=== PATIENT | male | born 1935 | race Caucasian/White ===

== ENCOUNTER → 2018-11-19 19:12 | Outpatient (REF) | payer MEDICARE, SELFPAY ==
[2018-11-19 21:23] LABS: Prostate Specific Antigen 7.53 ng/mL (0.10-4.00)
== END ==
LOC: LAB 19:12
PROVIDERS: Visit Provider Family Medicine Geriatric Medicine
DX: R97.20 Elevated prostate specific antigen [PSA] (principal)
CPT/HCPCS: 36415; 84153

== ENCOUNTER 2019-11-10 08:07 | Day surgery (SDC) | payer MEDICARE, SELFPAY ==
[2019-11-05 12:25] VITALS: BMI 30.5
[2019-11-10] VITALS (8 sets, daily range): BP systolic 109–175; BP diastolic 68–94; PULSE 66–78; RESP 10–18; TEMP 36.3–36.6; O2SAT 89–96; BMI 29.5
[2019-11-10] MEDS: ACETAMINOPHEN 325 MG TABLET 975 MG PO (09:25)
[2019-11-10] MEDS: PREGABALIN 75 MG CAPSULE PO (09:26)
[2019-11-10] MEDS: MELOXICAM 7.5 MG TABLET 15 MG PO (09:26)
--- NOTE | 2019-11-10 09:46 | SUR.PREOP ---
Tez Gupta RN (covered this author for a break) noted pt with a irregular heart beat, placed pt on the monitor and noted PVC's and bijemeni. EKG (outside) done 10/25/2019 showed NSR. This author notified anesthesia of heart rhythm, checking with anesthesia to see if second EKG needs to be done today, anesthesia didn't think second EKG would be necessary due to pt asymptomatic.
[2019-11-10] MEDS: LACTATED RINGERS 1,000 ML 42 ML IV (10:30)
--- NOTE | 2019-11-10 10:39 | P.OP_ITS ---
Operative Date/Time/Diagnoses Date of procedure: 11/10/19 Time of procedure: 12:27 Pre-op diagnosis: Right knee medial compartment osteoarthritis Post-op diagnosis: same Procedure & Clinicians Procedure: Right knee medial compartment arthroplasty Same procedure as scheduled: Yes Indications: The patient presents today for medial compartment knee arthroplasty after failure of conservative treatment. The nature of the procedure including the risks and benefits, alternatives, postoperative course and expected outcome were discussed and all questions answered. Consent was obtained. Operative site confirmed and marked. Surgeon: Sherman Vee [employer] Inspector: Keenan Osorio Anesthesia Type: General and Local Operative Notes Closure Type: primary Specimen(s): none sent Prosthetic devices, grafts, tissues, transplants, or devices: ZUK E femoral component, 3 tibial component and 9 mm polyethylene tray. Applied: implant(s) Estimated Blood Loss (mL): 10 Blood products transfused: none Tourniquet time (min): 45 Procedure in detail: The patient was taken to the operative suite and placed under general anesthesia. The patient received prophylactic antibiotics 1 g of IV tranexamic acid prior to surgery. The lateral aspect of the leg was prepped and the knee injected with 20 mL of 1% lidocaine with epinephrine. The leg was prepped and draped in usual sterile fashion. The leg was exsanguinated with an Esmarch dressing and the tourniquet raised to 250 torr. A 10 cm medial parapatellar incision and arthrotomy was then made. The anterior aspect of the fat pad and medial meniscus was resected. A small amount of anterior tibial boss was resected with a oscillating saw. The knee was then extended and the alignment guide placed. The distal femoral and proximal tibial cutting guides were then pinned into place. The distal femoral cut was made in extension. The proximal tibial cut was made in flexion. All remaining meniscus was excised. Gaps were checked with blocks. Soft tissues were then injected with a combination of 40 mL of quarter percent Marcaine with epinephrine, 20 mL of Exparel. The femur was sized and the appropriate cutting guide placed. The peg holes were drilled and chamfer cuts made. Next the tibia was sized and drilled. Trial components were then placed. The knee had good congregation of soft tissue tension without over correction. Range of motion was full. The trial components were removed. The knee was cleansed with Pulsavac irrigation and dried. The components were then cemented with high viscosity vacuum mixed bone cement. The knee was held in extension until the cement had adequately cured. The knee was then irrigated and inspected for any further debris. The extensor mechanism was closed at 90? of flexion with a few interrupted #1 Vicryl sutures and a running O V-LOC suture. The knee was then filled with 50 mL of solution containing 1 g of tranexamic acid and 10 mL of 0.5% Marcaine. The subcutaneous tissue was closed with 2-0 Vicryl. The skin was closed with a running 3 0 V-LOC suture and surgical adhesive. An Aquacel dressing was applied. The leg was then wrapped with an Delgado which will be kept on for the first 24 hours. The patient tolerated the procedure well and was returned to recovery room in good condition. Complications: none Post-operative Condition: stable Disposition: same day surgery Plan for aftercare: Standard postoperative protocol for medial compartment a rthroplasty.
--- NOTE | 2019-11-10 10:39 | PM.PREOP ---
Pre-operative Note Interval Note History & Physical reviewed/Exam performed by Physician: Yes Changes to H&P: No
[2019-11-10] MEDS: CEFAZOLIN 2 GM/100 ML FROZ.PIGGY IV (11:23)
[2019-11-10] MEDS: TRANEXAMIC ACID 1,000 MG VIAL 1000 MG INJ (11:40)
[2019-11-10] MEDS: LIDOCAINE 1% W/EPI 20 ML INJ (11:40)
--- NOTE | 2019-11-10 11:50 | SUR.OPER ---
Supine on padded OR bed. Pillow under head, arms secured on padded armboards <90 degree abduction. Safety belt across torso. Non-operative leg secured with tape over blanket over lower leg. Operative leg secured in DeMayo/Jerry positioner. Foam padded brace at thigh of operative leg.
[2019-11-10] MEDS: BUPIVACAINE 0.5% W/ EPI (PF) 20 ML, BUPIVACAINE LIPOSOME 266 MG, SODIUM CHLORIDE 0.9% 2... INJ (11:59)
[2019-11-10] MEDS: BUPIVACAINE 0.5% W/ EPI (PF) 10 ML, TRANEXAMIC ACID 1,000 MG, SODIUM CHLORIDE 0.9% 20 ML INJ (12:02)
[2019-11-10] MEDS: OXYCODONE IR 5 MG TABLET PO (13:09)
--- NOTE | 2019-11-10 13:32 | SUR.PHASEI ---
Stable pacu stay. Medicted with oxycodone, to opd, reported to [facility]i.
== END 2019-11-10 14:01 | disposition home or self-care (01) ==
PROVIDERS: PCP Physician Assistant Medical; Referring Provider Orthopaedic Surgery; Visit Provider Orthopaedic Surgery
PROC: (CPT 27446; principal; 2019-11-10 10:45)
DX: M17.11 Unilateral primary osteoarthritis, right knee (principal)
CPT/HCPCS: 27446; C1776; C9290; J0690; J3010

== ENCOUNTER → 2020-02-25 15:03 | Outpatient (CLI) | payer MEDICARE, SELFPAY ==
[2020-02-25 15:38] LABS: Bacteria Urine None Seen; RBC Urine None Seen (0-5/HPF)
[2020-02-25 16:16] LABS: Add Manual Diff / Slide Review NO; Basophils Absolute Auto 100 /uL (0-100); Basophils Percent Auto 1.2 % (0-2); Eosinophils Absolute Auto 200 /uL (0-450); Eosinophils Percent Auto 2.5 % (2-4); Hematocrit 44.6 % (41-53); Hemoglobin 15.6 g/dL (13.5-17.5); Lymphocytes Absolute Auto 2200 /uL (1100-4500); Lymphocytes Percent Auto 30.8 % (25-40); Mean Corpuscular Hemoglobin 32.3 PG (26-34); Mean Corpuscular Volume 92.4 fL (80-100); Monocytes Absolute Auto 600 /uL (0-900); Monocytes Percent Auto 8.5 % (3-14); Neutrophils Absolute Auto 4000 /uL (1500-7000); Platelet Count 232 X10^3/uL (150-400); Red Blood Cell Count 4.83 X10^6/uL (4.5-5.9); Red Cell Distribution Width 13.6 % (11.6-14.8)
[2020-02-25 16:20] LABS: Hemoglobin A1C% w Est Avg Glu 5.3 % (4.0-6.0)
[2020-02-25 16:21] LABS: Appearance Urine UA CLEAR; Bilirubin Urine UA NEGATIVE (NEGATIVE); Color Urine UA YELLOW; Glucose Urine UA NEGATIVE (Negative); Ketones Urine UA TRACE (NEGATIVE); Leukocyte Esterase Urine UA NEGATIVE (NEGATIVE); Nitrite Urine UA NEGATIVE (Negative); Occult Blood Urine UA NEGATIVE (Negative); Protein Urine UA TRACE (Negative); Urobilinogen Urine UA 0.2 E.U./dL (0.2); pH Urine UA 6.5 (4.5-8.0)
[2020-02-25 16:27] LABS: Blood Urea Nitrogen 17 mg/dL (9-20); Calcium 9.4 mg/dL (8.4-10.2); Carbon Dioxide 26 mmol/L (22-32); Chloride 104 mmol/L (98-107); Estimated Glomerular Filt Rate > 60.0 mL/min (>60); Glucose 118 mg/dL (80-110); HEMOLYSIS < 15 (0-50); Potassium 4.4 mmol/L (3.4-5.1); Sodium 138 mmol/L (137-145)
[2020-02-25 16:32] LABS: Culture Indicated Urine Cult Not Indicated; Squamous Epithelial Cell Urine 0-1 /HPF (0-5/HPF); WBC Urine 0-1/HPF (0-5/HPF)
== END ==
PROVIDERS: PCP Physician Assistant Medical; Referring Provider Orthopaedic Surgery; Visit Provider Orthopaedic Surgery
DX: Z01.812 Encounter for preprocedural laboratory examination (principal); R73.9 Hyperglycemia, unspecified; N39.0 Urinary tract infection, site not specified
CPT/HCPCS: 36415; 80048; 81001; 83036; 85025

== ENCOUNTER → 2020-03-27 09:50 | Outpatient (CLI) | payer MEDICARE, SELFPAY ==
[2020-03-27 23:33] LABS: COVID19 Sendout Not Detected (Not Detect)
== END ==
PROVIDERS: PCP Physician Assistant Medical; Visit Provider Physician Assistant
DX: Z01.812 Encounter for preprocedural laboratory examination (principal)
CPT/HCPCS: 87635

== ENCOUNTER 2020-03-30 08:04 | Day surgery (SDC) | payer MEDICARE, SELFPAY ==
[2020-03-22 08:32] VITALS: BMI 31.4
[2020-03-30] VITALS (15 sets, daily range): BP systolic 96–141; BP diastolic 51–90; PULSE 55–71; RESP 10–19; TEMP 35.9–36.5; O2SAT 92–96; BMI 30.4
--- NOTE | 2020-03-30 | DI.RAD.S_ITS ---
PROCEDURE: XR PELVIS 1-2V INDICATIONS: INTER-OP RIGHT HIP TECHNIQUE: 1 view of the lower pelvis acquired. COMPARISON: [facility] [place], [place], XR PELVIS WITH BILATERAL HIPS 5 VIEWS, 02/25/2020, 13:59. FINDINGS: Bones: Patient is status post right hip arthroplasty, with hardware components in expected positions. Left hip arthroplasty prosthesis is stable. The hip joint appears congruent. The visualized bony structures appear intact. Soft tissues: Overlying postoperative changes are noted. No suspicious soft tissue densities. IMPRESSION: Intraoperative images for right hip arthroplasty demonstrate expected postsurgical change. Left hip arthroplasty stable. Dictated by: Elizabeth Live MD, PhD on 03/30/2020 at 12:16 Approved by: Elizabeth Live MD, PhD on 03/30/2020 at 12:24
--- NOTE | 2020-03-30 08:36 | DI.RAD.S_ITS ---
PROCEDURE: XR HIP W PEL IF DONE RT 2V INDICATIONS: total right hip TECHNIQUE: AP pelvis and lateral view of the right hip acquired. COMPARISON: None. FINDINGS: Bones: Patient is status post right hip arthroplasty, with hardware components in expected positions. The hip joint appears congruent. The visualized bony structures appear intact. There is also prior left total hip arthroplasty. Soft tissues: Overlying postoperative changes are noted. No suspicious soft tissue densities. IMPRESSION: Postop changes from right total hip arthroplasty with anatomic right hip alignment. Dictated by: Torres Snyder M.D. on 03/30/2020 at 13:30 Approved by: Torres Snyder M.D. on 03/30/2020 at 13:31
[2020-03-30] MEDS: LACTATED RINGERS 1,000 ML 42 ML IV ×2 (09:18→11:58)
[2020-03-30] MEDS: ACETAMINOPHEN 325 MG TABLET 975 MG PO (09:18)
[2020-03-30] MEDS: PREGABALIN 75 MG CAPSULE PO (09:19)
[2020-03-30] MEDS: CELECOXIB 200 MG CAPSULE PO (09:19)
[2020-03-30] MEDS: VANCOMYCIN 1,000 MG/200 ML PIGGYBACK 200 MG IV (09:20)
--- NOTE | 2020-03-30 09:50 | PM.HP.1 ---
History of Present Illness History of Present Illness Date Patient Seen: 03/30/20 Time Patient Seen: 09:50 Chief complaint: [id number] Narrative: Gustavo continues to note having ongoing right hip pain which restricts his ability to ambulate and ability to walk up and down hills. He has a history of a left total hip arthroplasty done in 2012. He notes ongoing groin pain.. For additional H&P see previous H&P. 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) Family & Social History Social History: household members spouse Prior Living Arrangements House Safety & Behavioral: Feels Safe in Current Yes Environment Been Physically Hurt or No Threatened By a Person Suicidal Ideation Description None Suicide Plan Description No Plan Tobacco & Substance use: Smoking Status Never smoker alcohol intake current alcohol intake frequency 0-2 drinks per day Substance Use Type marijuana Meds Home Medications and Allergies Home Medications Medication Instructions Recorded Confirmed Type oxycodone 5 mg PO Q4H PRN #40 tab 11/10/19 03/30/20 Rx sildenafil [Viagra] 100 mg PO DAILY PRN 03/22/20 03/30/20 History tamsulosin 0.4 mg PO BEDTIME 03/22/20 03/30/20 History Allergies Allergy/AdvReac Type Severity Reaction Status Date / Time ciprofloxacin [From Cipro] AdvReac Severe Muscle Verified 03/22/20 11:03 spasm Review of Systems Review of Systems Narrative: No fever cough cold or flu Exam Vital Signs (past 8 hours): - 03/30/20 09:05 Temperature 97.3 F L Pulse Rate 65 Respiratory Rate 16 Blood Pressure 141/85 H Pulse Oximetry 95 Oxygen Delivery Method Room Air Oxygen Flow Rate 0 Narrative Exam Narrative: HEENT is benign, lungs are clear, cor regular rate and rhythm, abdomen soft and benign, right hip scans intact he has pain with range of motion in the right hip and restricted range of motion, left hip has a healed posterolateral scar. No significant swelling in bilateral lower extremities. Assessment & Plan Assessment & Plan narrative: Severe right hip osteoarthritis plan is for right total hip. The procedure options risks benefits and complications were discussed in detail. His health has been doing well with no new changes and think is a reasonable candidate for right total hip arthroplasty.
--- NOTE | 2020-03-30 09:54 | PM.OP.1 ---
Operative Date/Time/Diagnoses Date of procedure: 03/30/20 Time of procedure: 10:22 Pre-op diagnosis: Right hip osteoarthritis Post-op diagnosis: same Procedure & Clinicians Procedure: Right total hip arthroplasty posterior approach Same procedure as scheduled: Yes Indications: The patient has had progressively worsening right hip pain with radiographic changes consistent with arthritis. Non-operative management has failed and the patient has requested total hip replacement. The risks, benefits and alternatives to surgery were discussed with the patient prior to proceeding. Risks discussed included, but were not limited to, failure to relieve pain, leg length discrepancy, dislocation, stiffness, infection, nerve damage, deep venous thrombosis, pulmonary embolism, stroke, coma, heart attack, permanent paralysis and , as well as the potential need for eventual revision of the prosthetic. Surgeon: Christine Bolden Anesthesia Type: General and Spinal Operative Notes Findings: Severe right hip osteoarthritis, good quality bone, good stability Closure Type: primary Specimen(s): none sent Prosthetic devices, grafts, tissues, transplants, or devices: Bolden and Nephew 58 mm R3 cup, neutral poly liner 58 by 36, anthology size 7 standard offset, -3 Applied: drain(s) Estimated Blood Loss (mL): 250 Blood products transfused: none Procedure in detail: The patient was seen in the pre-operative area, where the patient identified the right hip as the operative site and this was marked with my initials. The patient received pre-operative antibiotics and was taken to the operating room and placed on the operative table in the left lateral decubitus position after satisfactory anesthesia. A instructor of sociology out was performed. The right leg was prepared from the ankle to the iliac crest with ChloroPrep in the usual fashion and draped through sterile drapes. The hip was approached through an approximately 20 cm incision centered over the greater trochanter and curving gently posteriorly as it went proximally. This was carried sharply to the fascia harry, which was divided and retracted with a self retaining retractor. The trochanteric bursa was excised with care being taken to avoid the sciatic nerve, which was identified and protected throughout the case. The short external rotators were incised and the capsulomuscular flap was raised and tagged for later repair. The hip was dislocated, and a femoral neck osteotomy performed approximately 15 mm above the lesser trochanter. Retractors were placed around the femur. The canal was opened with a box cutting osteotome, followed by a T handled reamer and a lateralizing reamer. The chili pepper broach was then used, followed by sequential broaching until there was good stability of the broach in the femur. Retractors were placed to expose the acetabulum. The labrum and central soft tissues were removed. Reaming was performed initially going up in 2 mm increments, then 1 mm increments until good bite was obtained with an odd sized reamer. The cup 1 mm larger than the last reamer was then inserted using the appropriate anteversion guides. A trial neutral liner was placed. The broach was placed in the canal. A trial head and neck were then placed and the hip relocated and checked for leg length and stability. An intraoperative film confirmed the component position and no evidence of fracture. The patient was stable in the position of sleep, of squatting, and could be put through a range of motion with 45 degrees internal rotation without dislocation. At 90 degrees flexion, internal rotation to 70? was possible before dislocation. This was felt to be satisfactory and the appropriate components were opened, and the trials were removed. The acetabular liner was impacted into position. The final stem was then impacted into the prepared femoral canal. A brief Betadine soak was performed while trialing with head options. The hip was meticulously irrigated with normal saline. Finally the femoral head was impacted onto the stem. The acetabulum was cleared of all material and the hip relocated one final time. The capsulomuscular flap was then repaired to the greater trochanter though an awl hole using the tag sutures. The short external rotators were repaired with a nonabsorbable suture. A deep drain was placed and brought out anteriorly. The fascia harry was closed with Vicryl. The subcutaneous layer was closed with barbed sutures and SteriStrips. An Aquacel Ag dressing was applied and the patient was taken to recovery having tolerated the procedure well. Post-operative Condition: stable Disposition: Acute Care Plan for aftercare: The patient will be maintained on a standard total hip replacement protocol with weight bearing as tolerated and posterior hip precautions. The patient will receive Aspirin and sequential compression devices for DVT prophylaxis. The patient will be discharged home when safe for the home environment.
[2020-03-30] MEDS: CEFAZOLIN 2 GM/100 ML FROZ.PIGGY IV ×2 (10:10→17:52)
[2020-03-30] MEDS: TRANEXAMIC ACID 1,000 MG VIAL 1000 MG INJ ×2 (10:10→11:50)
--- NOTE | 2020-03-30 10:44 | SUR.OPER ---
Lateral on padded OR bed. Gel axillary roll. Arms secured on padded armboard with pillow supporting top arm. Padded hip positioner braces x4 - anterior and posterior chest and pelvis. Additional gel pad used anterior pelvis. Gel pad under bottom leg from knee to foot and secured with tape over sheet.
[2020-03-30] MEDS: BUPIVACAINE 0.25% W/ EPI 30 ML VIAL 60 ML INJ (10:51)
[2020-03-30] MEDS: BUPIVACAINE LIPOSOME 266 MG/20 ML VIAL INJ (10:52)
[2020-03-30] MEDS: SODIUM CHLORIDE IRRIG SOLUTION 250 ML, EPINEPHrine 1 MG IRR (10:55)
[2020-03-30] MEDS: LACTATED RINGERS 1,000 ML 125 ML IV (14:30)
[2020-03-30] MEDS: IBUPROFEN 400 MG TABLET PO ×3 (14:30→20:41)
[2020-03-30] MEDS: ACETAMINOPHEN 325 MG TABLET 650 MG PO ×2 (14:39→20:39)
--- NOTE | 2020-03-30 14:45 | PC.NURSE ---
Pt to room 217 via bed from PACU. Pt oriented to room, call light, bed controls and tv controls. Pt denies pain, nausea, or shortness of breath. VS stable. Given a snack and water to drink. Bed alarm on for safety. SCD's on and running. Pt agrees to call for assistance and not get up without staff assistance.
--- NOTE | 2020-03-30 17:00 | PT.IIE ---
Current Diagnoses Unilateral primary osteoarthritis, right hip (03/30/20) Pain in right hip (03/30/20) Surgery Performed Operation Date: 03/30/20 10:45 Actual Procedures p Total Hip Arthroplasty(Right) - Christine Bolden MD Surgical History (Last Reviewed 03/30/20 @ 09:50 by Christine Bolden MD) History of colonoscopy (Acute 08/13/11) History of total left hip arthroplasty (Acute ~2016) History of vasectomy (Acute) Hx of arthroscopy of left knee (Acute 2017) Hx of elbow surgery (Acute) Hx of tonsillectomy (Acute) Hx of umbilical hernia repair (Acute) S/P right unicompartmental knee replacement (Acute 10/31/19) Medical History (Last Reviewed 03/30/20 @ 09:50 by Christine Bolden MD) Anxiety and depression (Acute) Colon polyps (Acute) Diverticulosis (Acute) Elevated prostate specific antigen (PSA) (Acute) Knee pain, right (Acute) Left knee pain (Acute) Liver disease (Acute 1968) Melanoma in situ of back (Acute) Osteoarthritis (Acute) Seborrheic dermatitis (Acute) Physical Therapy Inpatient Evaluation/Re-Eval M1 PT/OT-IP Prior Functional Status Start: 03/30/20 17:09 Freq: NEEDED Status: Active Protocol: Document 03/30/20 17:00 AB (Rec: 03/30/20 18:13 AB [id number]) Medical Review Prior Functional Status Medical History Reviewed Yes Communication able to make needs known Mobility and Gait pt stated that he is independent with all mobilities and ambulation without AD Prior Functional Level (Other details) pt s/p R uni knee last oct 2019 and just underwent R CHADWICK posterior approach today. stated that his will undergo the same procedure in ~ 6 weeks and he will be the one who will assist her. Social History Household Members spouse Living Arrangements House Number of Floors (Floors) One Floor Number of Stairs To Enter/Railing? 1 step to enter Home Environment Walk in Shower Home Equipment Front Wheel Walker,Straight Cane,Grab Bars In Shower M2 PT-IP Current Condition Start: 03/30/20 17:09 Freq: NEEDED Status: Active Protocol: Document 03/30/20 17:00 AB (Rec: 03/30/20 18:13 AB [id number]) Physical Therapy Current Condition Current Condition Evaluation Date 03/30/20 Treatment Diagnosis s/p R CHADWICK posterior approach; difficulty in walking Onset Date 03/30/20 Precautions Posterior Hip Precautions No Hip Flexion > 90 degrees,No Hip Internal Rotation,No Hip Adduction Weight Bearing Status Weight Bearing Status Weight Bear as Tolerated Allowed Weight Bearing Amount (enter % RLE WBAT or #) (%) M3 PT-IP Subjective Start: 03/30/20 17:09 Freq: NEEDED Status: Active Protocol: Document 03/30/20 17:00 AB (Rec: 03/30/20 18:13 AB [id number]) Subjective Physical Therapy Visit Type Type Initial Evaluation Visit Start Time 17:00 Visit Stop Time 17:51 Total Visit Minutes 51 Number of PERSONAL LINES SALES EXECUTIVE Visits 0 Physical Therapy Visit Comments Patient Comments pt is agreeable to do PT Therapy Pain Assessment Pain Present Pain Present Denied Pain M4 PT-IP Mobility and Gait Start: 03/30/20 17:09 Freq: NEEDED Status: Active Protocol: Document 03/30/20 17:00 AB (Rec: 03/30/20 18:13 AB [id number]) PT-Bed Mobility Assessment Rolling Level of Assist Standby Assistance Supine to Sit Supine to Sit Standby Assistance Sit to Supine Sit to Supine Contact Guard Assistance,1 Person Assistance Scooting Scooting to Edge of Bed Standby Assistance PT-Transfer Assessment Sit to and From Stand Sit to and from Stand Minimal Assistance,1 Person Assistance,Use of Upper Extremities Equipment Transfer Assistive Device Gait Belt,Front Wheeled Walker Orthotic/Prosthetic Devices or Brace: No Transfers Transfer Destination Bed,Chair Transfer Technique ambulated using FWW Transfer Ability Level of Assist Minimal Assistance,1 Person Assistance,Use of Upper Extremities Comments Mobility Comments pt with NAC standing using FWW and trying to use the urinal. PT took over and pt sat on EOB. Pt agreed to do PT. reviewed hip precautions with pt and pt requires cues to recall. pt stated that he feels squirrely in the head. pt can be impulsive and requires cues for safety and to maintain hip precautions. pt completed sit to stand from EOB min A and cues for hip precautions. ambulated in room ~ 20 ft x 2 . presents with unsteady antalgic gait and cues for R quad activation . presents with increase R knee flexion during standing and requires cues for steadiness. pt ambulated to bed. completed supine to sit SBA and cues to maintain hip precautions. pt usually gets in/out the L side of the bed. pt stated that he usually feels dizzy with initial sitting up. BP checked: 139/ 90. pt ambulated towards the chair ~ 15 ft min A and cues using fWW. pt wants to use the urinal and remained standing using fWW for support and requires CGA and cues for safety. pt tolerated ~ 8 min of standing. pt agreed to sit up on chair. positioned pt on the chair. set up pt for dinner. call light and table placed within reach. Gait Assessment Gait Gait Assistance Required: Minimum Assistance,1 Person Assist Distance (Feet) 20 Able to Maintain Weight Bearing Status Yes During Gait Assistive Devices Assistive Device Gait Belt,Front Wheeled Walker Orthotic/Prosthetic Devices or Brace: No Gait Deviations General Gait Pattern Antalgic,Decreased Stride Length,Decreased Feet Clearance,Step-to Gait Factors Limiting Gait Function Factors Limiting Gait Function Decreased Activity Tolerance, Decreased Strength,Difficulty Following Directions,Poor Balance,Poor Safety Awareness Comments Gait Comments pls refer to mobility section for details PT-Balance Assessment Sitting Balance and Reactions Static Sitting Balance Ability Good Dynamic Sitting Balance Ability Good Standing Balance and Reactions Static Standing Balance Ability Fair Dynamic Standing Balance Ability Fair Device Used FWW M5 PT-IP Objective Assessments Start: 03/30/20 17:09 Freq: NEEDED Status: Active Protocol: Document 03/30/20 17:00 AB (Rec: 03/30/20 18:13 [id number]) Orientation Orientation/Cognition Level of Alertness Alert Orientation Name,Birthday,Place,Situation Language Function Ability No Deficits Noted Safety Awareness Decreased Safety Awareness Memory Description Short Term Impaired Gross Range of Motion Lower Extremity ROM Assessment Within Functional Limits Strength Lower Extremity Strength Assessment Right Impaired Hip 3+/5 Knee 4-/5 M6 PT-IP Treatment Start: 03/30/20 17:09 Freq: NEEDED Status: Active Protocol: Document 03/30/20 17:00 AB (Rec: 03/30/20 18:13 AB [id number]) Physical Therapy Treatment Education Education Provided Precautions,Weight Bearing Status,Post-Op Packet,Safety M7 PT-IP Assessment and Plan Start: 03/30/20 17:09 Freq: NEEDED Status: Active Protocol: Document 03/30/20 17:00 AB (Rec: 07/09/20 18:13 AB [id number]) PT Summary Assessment and Plan Potential Rehabilitation Potential Good Status of Condition at Evaluation Evolving Summary Impairments Pain,ROM,Strength,Balance, Coordination,Sensation,Tone, Cognition,Bed Mobility, Transfers,Gait,Activity Tolerance Assessment Summary pt requiring CGA to min A with mobility and with slight confusion and is impulsive. pt s/p R CHADWICK posterior approach and just had surgery this morning and will likely progress with mobility during hospital stay. pt lives in [employer] and plans to go home with spouse to assist him. will conduct caregiver training when appropriate and also complete stair training. pt stated that he is set up for outpt PT. Goals Bed Mobility Goal Independent Transfer Goal Independent,Front Wheeled Walker Gait Goal Independent,Front Wheel Walker Gait Distance 200 Other Goals up/down 1 step using FWW SBA Days to Meet Goals 3 Frequency of Treatment Frequency Of Treatment Twice a Day Treatment Plan Physical Therapy Treatment Plan Bed Mobility Training,Transfer Training,Gait Training, Therapeutic Exercise,Balance Retraining,Post Op Education, Discharge Planning,Hot or Cold Pack,Neuromuscular Re-ed, Coordination Retraining,Manual Therapy Other Recommendations and Next Treatment ambualation, caregiver Focus training, stair training Recommendations To Nursing Amount of Assist Needed 1 Person Assist Discharge Recommendations PT Discharge Recommendations Home with Assistance, Outpatient PT Transportation Needs at Discharge Private Vehicle
[2020-03-30] MEDS: DOCUSATE 100 MG CAPSULE PO (20:39)
[2020-03-30] MEDS: ASPIRIN EC 81 MG TABLET PO (20:39)
[2020-03-30] MEDS: TAMSULOSIN 0.4 MG CAPSULE PO (20:39)
--- NOTE | 2020-03-30 22:43 | PC.NURSE ---
ZAKI SHIFT NOTE: pt ambulated in his [id number]. denied any pain. dressing cdi. hv compressed and intact. CMS+. PP++. Pt unable to urinate, bladder scan was 742cc. Inserted in and out cath per protocol, but failed. In and out cath met resistance. tried with coude catheter, did not meet any resistance and inserted all the way, but there was no urine output. Another RN tried 16 Iranian regular thomson, but no urine output. Notified , DEO to give it an hour and try again if unable to urinate. Finally Coordinator got thomson in. pt had over 700cc out, hematuria from trauma, urine dark cee. notified Dr. Higginbotham that thomson was in. VTO to leave thomson in till tomorrow.
[2020-03-31] VITALS: BP 122/74; PULSE 65; RESP 16; TEMP 36.8; O2SAT 92
[2020-03-31] MEDS: LACTATED RINGERS 1,000 ML 125 ML IV (00:40)
[2020-03-31] MEDS: CEFAZOLIN 2 GM/100 ML FROZ.PIGGY IV (01:20)
[2020-03-31] MEDS: IBUPROFEN 400 MG TABLET PO ×4 (01:20→13:38)
[2020-03-31 05:44] LABS: Hematocrit 39.4 % (41-53); Hemoglobin 13.2 g/dL (13.5-17.5)
[2020-03-31 06:00] VITALS: BP 128/80; PULSE 63; RESP 16; TEMP 36.8; O2SAT 95
[2020-03-31] MEDS: ASPIRIN EC 81 MG TABLET PO (08:40)
[2020-03-31] MEDS: DOCUSATE 100 MG CAPSULE PO (08:40)
[2020-03-31] MEDS: ACETAMINOPHEN 325 MG TABLET 650 MG PO ×2 (08:41→13:38)
[2020-03-31 08:44] VITALS: PULSE 63; RESP 16; O2SAT 97
[2020-03-31 09:00] VITALS: BP 121/79; PULSE 55; RESP 16; TEMP 36.6; O2SAT 95
--- NOTE | 2020-03-31 09:44 | P.DS_ITS ---
History of Present Illness History of Present Illness Date Patient Seen: 03/31/20 Time Patient Seen: 09:44 Chief complaint: [id number] Narrative: Gustavo continues to note having ongoing right hip pain which restricts his ability to ambulate and ability to walk up and down hills. He has a history of a left total hip arthroplasty done in 2012. He notes ongoing groin pain.. For additional H&P see previous H&P. Discharge Providers Provider Date of admission: 03/30/20 08:04 Discharge Date: 03/31/20 Primary care physician: Yennifer Martinez PA-C Consults: 03/30/20 08:36 Consult to Anesthesiology Routine Comment: Consulting Provider: Anesthesiologist Reason for consultation: Regional block for post operative pain control 03/30/20 13:35 Consult to Discharge Planning Routine Comment: Consult to Physical Therapy Evaluate & Treat Comment: Physician Instructions: post op CHADWICK protocol Consult to Respiratory Therapy Evaluate & Treat Comment: Physician Instructions: Evaluate and treat Discharge provider: Christine Bolden MD Summary Hospital Course Discharge Diagnosis: Severe right hip OA. Right total hip arthroplasty. BPH. Hospital Course: Patient was taken the operating room he underwent a right total hip arthroplasty. He per tolerated the procedure well and was mobilized with nursing. He did have difficulty voiding and had to have a Jarrett catheter placed. The Jarrett was discontinued on postop day by day 1. He has seen Dr. Ojeda in the past for urological problems. He was able to void prior to d ischarge. Status at Discharge Cognitive/behavioral status at discharge: oriented Functional status at discharge: uses cane/walker Overall status at discharge: patient is progressing back to baseline Time Spent with Patient Time spent: Less than 30 minutes Exam Vital Signs (past 8 hours): - 03/31/20 06:00 03/31/20 08:44 03/31/20 09:00 Temperature 98.2 F 97.8 F Pulse Rate 63 63 55 L Respiratory Rate 16 16 16 Blood Pressure 128/80 121/79 Pulse Oximetry 95 97 95 Oxygen Delivery Method Room Air Oxygen Flow Rate 0 Objective Labs Result Diagrams: 03/31/20 05:30 Labs: Laboratory Results - last 24 hr 03/31/20 05:30 Hgb 13.2 L Hct 39.4 L Discharge Plan Discharge Plan Patient Disposition: Home Discharge comment: Discharge to home as long as the patient is able to void. Discharge orders & Medications Prescriptions: New acetaminophen 325 mg Tablet 650 mg PO TID Qty: 90 RF: 0 polyethylene glycol 3350 17 gram Powder In Packet 17 gm PO DAILY PRN (Reason: Constipation) Qty: 30 RF: 0 aspirin 81 mg Tablet,Delayed Release (Dr/Ec) 81 mg PO BID Qty: 60 RF: 0 ibuprofen 400 mg Tablet 400 mg PO Q4HR Qty: 90 RF: 0 oxycodone 5 mg Tablet 5 mg PO Q3HR PRN (Reason: Pain, Moderate (4-6)) Qty: 30 RF: 0 Continued oxycodone 5 mg tablet 5 mg PO Q4H PRN (Reason: pain) Qty: 40 RF: 0 sildenafil [Viagra] 100 mg Tablet 100 mg PO DAILY PRN (Reason: Sexual Activity) RF: 0 tamsulosin 0.4 mg Capsule 0.4 mg PO BEDTIME RF: 0 Follow up/Referrals: Yennifer Martinez PA-C [Primary Care Provider] - Diet/Activity/Treatments Diet: Diet as Tolerated Activity: Walk as tolerated avoid hip flexion greater than 90?. Cold/Heat Therapy: Ice multiple times a day. Skin/Wound/Dressing Care Report to your healthcare provider any signs of infection, such as:: chills, fever, night sweats, increased pain, unusual drainage and unusual redness Dressing: Keep dressing on. Okay to shower Visit Report/Discharge Packet Instructions: DI for Hip Replacement, DI for Prescription Opioid Use Discharge Data Primary Care Provider: Yennifer Martinez Quality VTE Deep Vein Thrombosis/Pulmonary Embolism Present on Admission: No
--- NOTE | 2020-03-31 09:46 | PT.IPTN ---
Current Diagnoses Unilateral primary osteoarthritis, right hip (03/30/20) Pain in right hip (03/30/20) Surgery Performed Operation Date: 03/30/20 10:45 Actual Procedures p Total Hip Arthroplasty(Right) - Christine Bolden MD Physical Therapy Treatment Note M2 PT-IP Current Condition Start: 03/30/20 17:09 Freq: NEEDED Status: Active Protocol: Document 03/30/20 17:00 AB (Rec: 03/30/20 18:13 AB [id number]) Physical Therapy Current Condition Current Condition Evaluation Date 03/30/20 Treatment Diagnosis s/p R CHADWICK posterior approach; difficulty in walking Onset Date 03/30/20 Precautions Posterior Hip Precautions No Hip Flexion > 90 degrees,No Hip Internal Rotation,No Hip Adduction Weight Bearing Status Weight Bearing Status Weight Bear as Tolerated Allowed Weight Bearing Amount (enter % RLE WBAT or #) (%) M3 PT-IP Subjective Start: 03/30/20 17:09 Freq: NEEDED Status: Active Protocol: Document 03/31/20 09:20 KS (Rec: 03/31/20 12:31 KS [id number]) Subjective Physical Therapy Visit Type Type Treatment Note Visit Start Time 09:20 Visit Stop Time 09:46 Number of BARN OPERATOR Visits 1 Physical Therapy Visit Comments Patient Comments pt is agreeable to do PT Therapy Pain Assessment Pain When Pain Assessed During Mobility Pain Present Pain Present Pain Reported Location Right Hip Intensity 3 Scale Used Numeric (0 - 10) Pain Behaviors Guarding Pain Management Techniques Apply Cold,Re-positioning, Timing of Activity with Medications M4 PT-IP Mobility and Gait Start: 03/30/20 17:09 Freq: NEEDED Status: Active Protocol: Document 03/31/20 09:20 KS (Rec: 03/31/20 12:31 KS [id number]) PT-Bed Mobility Assessment Supine to Sit Supine to Sit Standby Assistance Scooting Scooting to Edge of Bed Standby Assistance PT-Transfer Assessment Sit to and From Stand Sit to and from Stand Contact Guard Assistance,1 Person Assistance,Use of Upper Extremities Equipment Transfer Assistive Device Gait Belt,Front Wheeled Walker Orthotic/Prosthetic Devices or Brace: No Transfers Transfer Destination Bed,Chair Transfer Technique ambulated using FWW Transfer Ability Level of Assist Contact Guard Assistance,1 Person Assistance,Use of Upper Extremities Comments Mobility Comments Pt was in bed upon arrival from therapy. SBA for sup<>sit and scooting EOB. CGA for sit <>stand w/ FWW and cues for hand placement. Pt then performed 1 min weight shifting before ambulating ~ 300 ft w/ FWW and SBA to CGA. Pt required cues for quad activation and equal step length and demonstrated proper use of FWW. Pt then completed 1 platform step x2 w/CGA and cues for sequencing. Pt then ambulated back to room and stand<>sit in chair SBA w/ proper use of FWW and correct sequencing and hand placement. Instructed pt and then pt performed 1x10 bilateral ankle pumps, quad sets, and glute sets. Pt left in chair w/ all needs in reach. Gait Assessment Gait Gait Assistance Required: Contact Guard Assist,1 Person Assist Distance (Feet) 300 Able to Maintain Weight Bearing Status Yes During Gait Assistive Devices Assistive Device Gait Belt,Front Wheeled Walker Orthotic/Prosthetic Devices or Brace: No Gait Deviations General Gait Pattern Antalgic,Decreased Stride Length,Decreased Feet Clearance,Step-to Gait Factors Limiting Gait Function Factors Limiting Gait Function Decreased Activity Tolerance, Decreased Strength,Difficulty Following Directions,Poor Balance,Poor Safety Awareness Comments Gait Comments Pt ambulated ~300 total ft w/ FWW and SBA to CGA. Cues for quad activation and equal step length. Correct use of FWW demonstrated. Gait normalized w/ further distance. Stair Climbing Assessment Evaluation Level of Assist On Stairs Contact Guard Assistance Devices Stair Climbing Assistive Devices Front Wheel Walker Technique/Endurance Stair Climbing Direction Ascend and Descend Stair Climbing Technique Step to Step Number of Steps Climbed 1 Stair Climbing Set # Repetitions (reps) 2 Comments Stair Climbing Comments Pt ascended/descended platform step x2 w/ FWW and CGA and cues for sequencing. Pt stated he feels safe to perform step at home. PT-Balance Assessment Sitting Balance and Reactions Static Sitting Balance Ability Good Dynamic Sitting Balance Ability Good Standing Balance and Reactions Static Standing Balance Ability Good Dynamic Standing Balance Ability Good Device Used FWW M5 PT-IP Objective Assessments Start: 03/30/20 17:09 Freq: NEEDED Status: Active Protocol: Document 03/30/20 17:00 AB (Rec: 03/30/20 18:13 AB [id number]) Orientation Orientation/Cognition Level of Alertness Alert Orientation Name,Birthday,Place,Situation Language Function Ability No Deficits Noted Safety Awareness Decreased Safety Awareness Memory Description Short Term Impaired Gross Range of Motion Lower Extremity ROM Assessment Within Functional Limits Strength Lower Extremity Strength Assessment Right Impaired Hip 3+/5 Knee 4-/5 M6 PT-IP Treatment Start: 03/30/20 17:09 Freq: NEEDED Status: Active Protocol: Document 03/31/20 09:20 KS (Rec: 03/31/20 12:31 KS [id number]) Physical Therapy Treatment Exercises Exercises Ankle Pumps,Gluteal Sets,Quad Sets Education Education Provided Precautions,Weight Bearing Status,Post-Op Packet,Safety M7 PT-IP Assessment and Plan Start: 03/30/20 17:09 Freq: NEEDED Status: Active Protocol: Document 03/31/20 09:20 KS (Rec: 03/31/20 12:31 KS [id number]) PT Summary Assessment and Plan Potential Rehabilitation Potential Good Status of Condition at Evaluation Evolving Summary Impairments Pain,ROM,Strength,Balance, Coordination,Sensation,Tone, Cognition,Bed Mobility, Transfers,Gait,Activity Tolerance Progress Towards Goals Progressing Toward Goals Assessment Summary Pt SBA for bed mobility and SBA to CGA for transfers, ambulation and stairs. Pt demonstrated increased tolerance for activity today and was able to ambulate ~300 total ft. Pt required cues for quad activation and equal step length and showed improvements w/ normalizing gait w/ distance. Pt able to tolerate platform step w/ FWW and CGA and cues for sequencing as well as LE strengthening exercises. Pt states he feels safe to return home. He will benefit from outpatient therapy to improve strength and ROM. Goals Bed Mobility Goal Independent Transfer Goal Independent,Front Wheeled Walker Gait Goal Independent,Front Wheel Walker Gait Distance 200 Other Goals up/down 1 step using FWW SBA Days to Meet Goals 3 Frequency of Treatment Frequency Of Treatment Twice a Day Treatment Plan Physical Therapy Treatment Plan Bed Mobility Training,Transfer Training,Gait Training, Therapeutic Exercise,Balance Retraining,Post Op Education, Discharge Planning,Hot or Cold Pack,Neuromuscular Re-ed, Coordination Retraining,Manual Therapy Other Recommendations and Next Treatment ambualation, caregiver Focus training, stair training Recommendations To Nursing Amount of Assist Needed 1 Person Assist Discharge Recommendations PT Discharge Recommendations Home with Assistance, Outpatient PT Transportation Needs at Discharge Private Vehicle
--- NOTE | 2020-03-31 09:49 | PC.NURSE ---
Addendum entered by Anjali Bhatti R.N. 03/31/20 12:45: Patient has voided 100cc of dark yellow urine, 50 ml each time in the urinal. He will be discharging to home which is on [address]. TECHNICAL APPLICATIONS SCIENTIST to bladder scan patient now. Original Note: Patient is A&Ox3, inappropriate statements when this RN and AERONAUTICAL TEST ENGINEER in room. He is cooperative and pleasant. Jarrett catheter taken out around 0915 with 250cc of strawberry colored urine, no clots visualized. Hemovac also taken out of r.upper hip area, 25cc of bloody drainage in chamber. He has an aquacel dressing to r.posterior hip and this is cdi. He states that his pain is around 2/10. Given tylenol and Ibuprofen for discomfort and helpful. CMS wnl and ppx2.
--- NOTE | 2020-03-31 16:21 | CM.DANOTE ---
DC Assessment: note: Pt was admitted 03/30 for a planned R hip surgery. Surgeon: Dr. Bolden Payer: Medicare and [facility] Dr. Bolden saw pt today and ok'd him for d/c to home setting. PT did see him and cleared him for same. [place] to [place] home on [address] earlier this afternoon. No concerns re the d/c today were noted by the care team members.
== END 2020-03-31 13:54 | disposition home or self-care (01) ==
LOC: AC 03-31 13:41 → OR 03-31 14:22
PROVIDERS: PCP Physician Assistant Medical; Referring Provider Orthopaedic Surgery; Visit Provider Orthopaedic Surgery
PROC: 0SR90JZ Replacement of Right Hip Joint with Synthetic Substitute, Open Approach (ICD-10-PCS; CPT 27130; principal; 2020-03-30 10:45)
DX: M16.11 Unilateral primary osteoarthritis, right hip (principal); K76.9 Liver disease, unspecified
CPT/HCPCS: 27130; 36415; 72170; 73502; 85014; 85018; 94762; 97116; 97161; 97530; C1776; C9290; J0171; J0690; J1100; J2250; J2274; J2405; J2704; J3010

== ENCOUNTER → 2020-05-17 10:58 | Outpatient (CLI) | payer MEDICARE, SELFPAY ==
[2020-03-30 13:47] VITALS: BMI 30.4
[2020-05-17 12:57] LABS: Prostate Specific Antigen 7.32 ng/mL (0.10-4.00)
== END ==
PROVIDERS: PCP Physician Assistant Medical; Referring Provider Specialist; Visit Provider Specialist
DX: N40.0 Benign prostatic hyperplasia without lower urinary tract symptoms (principal)
CPT/HCPCS: 84153

== ENCOUNTER → 2021-11-01 09:45 | Outpatient (CLI) | payer MEDICARE, SELFPAY ==
[2021-10-10 11:12] VITALS: BMI 30.4
--- NOTE | 2021-11-01 09:47 | DI.MRI.S_ITS ---
PROCEDURE: MR PELIS WO/W CON INDICATIONS: prostate issue. TECHNIQUE: Coronal HASTE, axial T1 FSE with fat saturation, 3-plane nonbreath-hold T2 FSE. After the administration of contrast, dynamic axial, delayed axial and coronal VIBE or 2-D FLASH with fat saturation through the pelvis. Optional diffusion weighted imaging and ADC may be performed. COMPARISON: None. FINDINGS: Image quality: Diffusion images are suboptimal secondary to bilateral hip arthroplasty artifact. Dynamic postcontrast images are diagnostic. Prostate: Gland size is 6.0 by 6.1 by 6.5 cm; ellipsoid gland volume is 124 mL. Nodular hypertrophy of the transition zone with lobular indentation on the base of the urinary bladder. Peripheral zone is compressed. Lesion size(s): Lesion 1: 0.7 x 1.4 x 1.3 cm. Lesion 2: 1.6 x 1.6 x 1.7 cm Lesion location(s) (sector): Lesion 1: Right posterior transition zone at the gland base/median lobe (just right of midline) Lesion 2: Anterior right transition zone at the gland base, partially exophytic/hypertrophied median lobe. Lesion description: Lesion 1: Oval lesion with homogeneous moderate hypointensity, circumscribed but not in capsulated margins and close, but not definitely abutting the capsule. Lesion 2: Round lesion with circumscribed margins partially exophytic indenting into the urinary bladder, bulging the capsule. T2 weighted imaging (T2WI) morphology score: Lesion 1: Two Lesion 2: Two Diffusion weighted imaging (DWI) morphology score: Lesion 1: Nondiagnostic Lesion 2: Nondiagnostic Dynamic contrast enhancement (DCE): Lesion 1: Present Lesion 2: Present Lesion PI-RADS score: Lesion 1: PI-RADS two Lesion 2: PI-RADS two Genitourinary system: Bladder wall thickness is normal. Distal ureters are non distended. Bowel and peritoneum: No pathologic free pelvic fluid. Inferior colon and small bowel loops are normal in caliber. Nodes and vessels: No pelvic or inguinal adenopathy by size criteria. Iliac vessels are normal in caliber. Soft tissues: No inguinal hernias. Bones: Marrow demonstrates normal overall signal, without lesions to suggest metastases. IMPRESSION: 1. There are two PI-RADS two nodules just right of midline in the anterior and posterior transition zone at the base of the gland, unique in morphology compared to the remainder of the hypertrophied gland. These are incompletely evaluated secondary to nondiagnostic diffusion-weighted imaging from bilateral hip arthroplasties. This area could be targeted if biopsy was to be performed, however follow-up could also be considered appropriate. 2. No suspicious adenopathy elsewhere in the pelvis. Dictated by: Savanah Smith M.D. on 11/01/2021 at 13:19 Approved by: Savanah Smith M.D. on 11/01/2021 at 13:55
== END ==
PROVIDERS: Referring Provider Specialist; Visit Provider Specialist
DX: N40.1 Benign prostatic hyperplasia with lower urinary tract symptoms (principal); N13.8 Other obstructive and reflux uropathy
CPT/HCPCS: 72197; A9579

== ENCOUNTER → 2021-12-11 11:35 | Outpatient (CLI) | payer MEDICARE, SELFPAY ==
[2021-10-10 11:12] VITALS: BMI 30.4
[2021-12-11 14:47] LABS: Prostate Specific Antigen 9.15 ng/mL (0.10-4.00)
== END ==
PROVIDERS: Referring Provider Specialist; Visit Provider Specialist
DX: R97.20 Elevated prostate specific antigen [PSA] (principal); N40.1 Benign prostatic hyperplasia with lower urinary tract symptoms; N13.8 Other obstructive and reflux uropathy
CPT/HCPCS: 36415; 84153; 99215